=== PATIENT | female | born 1945 | race Two or more races ===

== ENCOUNTER 2018-09-08 05:50 | Inpatient (IN) | payer MEDICARE, OTHER ==
[~2018-09-08] VITALS: Ht 160 cm; Wt 74.4 kg
[2018-09-08] VITALS (19 sets, daily range): BP systolic 102–122; BP diastolic 50–89
[2018-09-08] MEDS ORDERED: LR 1000ml 1,000 ML IVLG SCH (07:01)
--- NOTE | 2018-09-08 07:07 | Anethesia Preoperative Eval ---
Anesthesia Pre-op PMH/ROS General Date of Evaluation: Sep 08, 2018 Time of Evaluation: 07:41 Anesthesiologist: Nuris ASA Score: ASA 3 Mallampati Score Class I : Soft palate, uvula, fauces, pillars visible Class II: Soft palate, uvula, fauces visible Class III: Soft palate, base of uvula visible Class IV: Only hard plate visible Mallampati Classification: Class II Surgeon: Baldev Diagnosis: Abd Pain Surgical Procedure: Vaginal Hysterectomy, Anesthesia History: none Family History: no anesthesia problems Allergies: Coded Allergies: PENICILLINS (Verified Allergy, Severe, 09/07/18) STOP BREATHING,CHOKING,HARD OF BREATHING Uncoded Allergies: ANALGESIC (Allergy, Severe, 09/07/18) STOP BREATHING,HARD TO BREATHE,REDNESS,ITCHING Medications: see eMAR Patient NPO?: Yes NPO Date: Sep 07, 2018 NPO Time: 1900 Past Medical History Pulmonary: Reports: other - Bronchitis Neurologic/Psychiatric: Reports: depression/anxiety Endocrine: Reports: DM HEENT: Reports: cataract (L), cataract (R) Anesthesia Pre-op Phys. Exam Physician Exam Last Vital Signs Date Time Temp Pulse Resp B/P (MAP) Pulse Ox O2 Delivery O2 Flow Rate FiO2 09/08/18 06:47 97.9 79 18 120/79 (93) 97 Constitutional: NAD Neurologic: CN 2-12 intact Cardiovascular: RRR Respiratory: CTA Gastrointestinal: S/NT/ND Airway Exam Mallampati Score: Class II MO: limited ROM: limited Teeth: missing, intact Anesthesia Pre-op A/P Risk Assessment & Plan Assessment: ASA 3 Plan: GA, SED, GlideScope Go Status Change Before Surgery: No Pre-Antibiotics Dru Gram Ancef IV Given Within 1 Hr of Incision: Yes Time Given: 08:01 Elio Lawler MD Sep 08, 2018 07:07
[2018-09-08] MEDS ORDERED: SYNTHROID100 MCG ORAL (07:09)
[2018-09-08] MEDS ORDERED: METFORMIN HCL500 M1 ORAL (07:09)
[2018-09-08] MEDS ORDERED: JANUMET XR 50-1 EACH ORAL (07:09)
[2018-09-08] MEDS ORDERED: Hydromorphone 0.5mg/0.5ml inj IVP PRN (07:15)
[2018-09-08] MEDS ORDERED: LORazepam Inj 2mg/ml 1ml IV PRN (07:15)
[2018-09-08] MEDS ORDERED: HYDROcodone/Acetamin 5/325 tab ORAL PRN ×2 (07:15→07:45)
[2018-09-08] MEDS ORDERED: HYDROcodone/Acetamin 7.5/325 tab ORAL PRN (07:15)
[2018-09-08] MEDS ORDERED: Ketorolac 30mg Inj IV PRN ×4 (07:15→08:15)
[2018-09-08] MEDS ORDERED: Midazolam 2mg/2ml Inj IVP PRN (07:15)
[2018-09-08] MEDS ORDERED: Labetalol 5mg/ml 20ml vial IV PRN (07:15)
[2018-09-08] MEDS ORDERED: fentaNYL 100 mcg/2 mL IV PRN (07:15)
[2018-09-08] MEDS ORDERED: Metoclopramide 10mg/2ml Inj IVP PRN ×2 (07:15→07:45)
[2018-09-08] MEDS ORDERED: Meperidine 50mg/ml Inj(FOR RIGORS ONLY) IVP PRN (07:15)
[2018-09-08] MEDS ORDERED: Atropine Sulfate 0.4mg/ml inj IVP PRN (07:15)
[2018-09-08] MEDS ORDERED: DiphenhydrAMINE 50mg/ml Inj IVP PRN (07:15)
[2018-09-08] MEDS ORDERED: NeoSporin Gu Irrig 1ml Amp IRRIG ONE (07:16)
[2018-09-08] MEDS ORDERED: Bupivacaine w/Epi 0.5% 30ml Vial INJ ONE (07:16)
[2018-09-08] MEDS ORDERED: Bacitracin 50000 Units Vial ONE (07:16)
[2018-09-08] MEDS ORDERED: Sodium Chloride 10ml vial INJ ONE (07:18)
[2018-09-08] MEDS ORDERED: Propofol 200mg/20ml IV ONE ×2 (07:18→09:36)
[2018-09-08] MEDS ORDERED: Lidocaine 1% MPF 10mg/ml 5ml ONE (07:18)
[2018-09-08] MEDS ORDERED: Lidocaine 1% Plain 30 ml INJ ONE ×2 (07:19→09:36)
[2018-09-08] MEDS ORDERED: Midazolam 2mg/2ml Inj ONE ×2 (07:21→07:52)
[2018-09-08] MEDS ORDERED: fentaNYL 100 mcg/2 mL IV ONE ×2 (07:21→10:33)
[2018-09-08] MEDS ORDERED: Sulfanilamide 15% Cream - 78gm VAGIN ONE (07:30)
[2018-09-08] MEDS ORDERED: ProvayBlue 5mg/ml 10ml amp INJ ONE (07:30)
--- NOTE | 2018-09-08 07:33 | Pre-Procedure Note/Attestation ---
Pre-Procedure Note/Attestation Complete Prior to Procedure Planned Procedure: not applicable Procedure Narrative: vaginal hysterectomy Indications for Procedure Pre-Operative Diagnosis: uterovaginal prolapse Attestation I attest that I discussed the nature of the procedure; its benefits; risks and complications; and alternatives (and the risks and benefits of such alternatives ), prior to the procedure, with the patient (or the patient's legal pharmaceutical specialty representative). I attest that, if there was a reasonable possibility of needing a blood transfusion, the patient (or the patient's legal pharmaceutical specialty representative) was given the [facility] standardized written summary, pursuant to the Seamus Marilou Blood Safety Act ([place] Health and Safety Code # 1645, as amended). I attest that I re-evaluated the patient just prior to the surgery and that there has been no change in the patient's H&P, except as documented below: Tamiko Wiseman MD Sep 08, 2018 07:33
[2018-09-08] MEDS ORDERED: Zolpidem 5mg tab ORAL PRN (07:45)
[2018-09-08] MEDS ORDERED: Acetaminophen (Non formulary) 100 ML IV ONE (07:45)
--- NOTE | 2018-09-08 07:53 | Pre-Procedure Note/Attestation ---
Pre-Procedure Note/Attestation Complete Prior to Procedure Planned Procedure: not applicable Procedure Narrative: Cystocele repair vaginal sling rectocele repair cystoscopy Indications for Procedure Pre-Operative Diagnosis: prolapce Attestation I attest that I discussed the nature of the procedure; its benefits; risks and complications; and alternatives (and the risks and benefits of such alternatives ), prior to the procedure, with the patient (or the patient's legal sales account representative). I attest that, if there was a reasonable possibility of needing a blood transfusion, the patient (or the patient's legal sales account representative) was given the [facility] standardized written summary, pursuant to the Seamus Marilou Blood Safety Act ([place] Health and Safety Code # 1645, as amended). I attest that I re-evaluated the patient just prior to the surgery and that there has been no change in the patient's H&P, except as documented below: Anton Arce MD Sep 08, 2018 07:52
[2018-09-08] MEDS ORDERED: LR 1000ml ONE (08:00)
[2018-09-08] MEDS ORDERED: Sterile Water Irrig 1000ml IRRIG ONE (08:00)
[2018-09-08] MEDS ORDERED: Sterile Water For Irrig 2000ml IRRIG ONE (08:00)
--- NOTE | 2018-09-08 08:42 | Immediate Post-Op Evaluation ---
Immediate Post-Op Evalulation Immediate Post-Op Evalulation Procedure: Vaginal Hysterectomy, Sling Rectocele, Cystocele Repair Date of Evaluation: Sep 08, 2018 Time of Evaluation: 11:53 IV Fluids: 1500 LR Blood Products: 0 Estimated Blood Loss: 75 Urinary Output: 500 Blood Pressure Systolic: 115 Blood Pressure Diastolic: 61 Pulse Rate: 77 Respiratory Rate: 16 O2 Sat by Pulse Oximetry: 100 Temperature (Fahrenheit): 97.2 Pain Score (1-10): 2 Nausea: No Vomiting: No Complications 0 Patient Status: awake, reacts, patent, extubated, none Hydration Status: adequate Dru Gram Ancef IV Given Within 1 Hr of Incision: Yes Time Given: 08:01 Elio Lawler MD Sep 08, 2018 08:42
[2018-09-08] MEDS ORDERED: NS Irrig 1000ml IRRIG ONE (09:20)
--- NOTE | 2018-09-08 09:27 | Brief Operative Note ---
Immediate Post Operative Note Operative Note Pre-op Diagnosis: uterovaginal prolapse Procedure: Vaginal Hysterectomy Post-op Diagnosis: same Surgeon: Ivone Compound Mixer: Herber Anesthesia: general Specimen: yes Complications: none Condition: stable Fluids: crystalloid Estimated Blood Loss: minimal Drains: none Packing: vaginal packing Implant(s) used?: No Tamiko Wiseman MD Sep 08, 2018 09:27
[2018-09-08] MEDS ORDERED: ProvayBlue 5mg/ml 10ml amp IVP ONE (10:24)
[2018-09-08] MEDS ORDERED: Glycopyrrolate 0.2mg/ml 1ml Vial ONE (11:25)
--- NOTE | 2018-09-08 11:32 | Brief Operative Note ---
Immediate Post Operative Note Operative Note Pre-op Diagnosis: prolapce Procedure: cystocele rectocele repair vaginal sling cystoscopy Post-op Diagnosis: same Surgeon: navdeep Arce Anesthesia: general Specimen: none Complications: none Condition: stable Fluids: 1500 Estimated Blood Loss: minimal Implant(s) used?: No Anton Arce MD Sep 08, 2018 11:32
[2018-09-08] MEDS: D5 1/2NS w/KCl 20mEq 1,000 ML IV SCH (15:53)
[2018-09-08] MEDS: ceFAZolin sod 1 GM in D5W 55 ML IV SCH ×2 (15:53→23:47)
--- NOTE | 2018-09-08 16:30 | Operative Note - Dictated ---
DATE OF OPERATION: 09/08/2018 PREOPERATIVE DIAGNOSIS: Uterovaginal prolapse. POSTOPERATIVE DIAGNOSIS: Uterovaginal prolapse. PROCEDURE: Vaginal hysterectomy. SURGEON: Tamiko Wiseman M.D. NURSING EDUCATOR: Natalie Craven M.D. ANESTHESIOLOGIST: Elio Lawler M.D. PROCEDURE IN DETAIL: After ensuring informed consent, the patient was taken to the operating room where general anesthesia was induced. The patient was sterilely prepped and draped with legs placed in Christofer stirrups in dorsal lithotomy position. A weighted speculum was placed in the vagina. Cervix was grasped with a double tooth tenaculum. The cervix was circumferentially anesthetized with Marcaine with epinephrine. Then circumferentially incision was made with the Bovie. The vaginal mucosa was pushed off of the underlying peritoneal surfaces. Rectovaginal peritoneum was identified, grasped, and entered sharply with Seo scissors. The posterior cul-de-sac of Juliocesar was entered. Long weighted speculum was placed there. The uterosacral ligament on the left side was grasped, cut, suture ligated. The uterosacral ligament on the right was grasped, cut, suture ligated. Attention was turned to the anterior aspect of the uterus where the vesicouterine peritoneum was identified, grasped, and entered sharply with Metzenbaum scissors. Shara retractor was placed there. The uterine arteries was grasped with Naa's on both sites, suture ligated x2. Utero-ovarian was grasped, cut, and suture ligated. Uterus was amputated. All pedicles appeared to be dry. The moist lap was placed in anticipation of Dr. Arce doing his part of the procedure. At the end of my procedure, all instrument and lap counts were correct x2. An excellent hemostasis was assured. Estimated blood loss was minimal. Tamiko Wiseman M.D. DR: Rachid JOB#: [id number] CC:
[2018-09-08] MEDS: NovoLOG Insulin Flexpen SUBQ SCH ×2 (16:59→20:16)
[2018-09-08] MEDS: Docusate 100mg cap ORAL SCH (17:58)
[2018-09-09] VITALS: BP 110/53
[2018-09-09] MEDS: D5 1/2NS w/KCl 20mEq 1,000 ML IV SCH (02:04)
[2018-09-09 04:00] VITALS: BP 101/56
[2018-09-09] MEDS: NovoLOG Insulin Flexpen SUBQ SCH ×4 (05:36→20:29)
[2018-09-09 07:22] LABS: BASOPHILS % (AUTO) 0.7 % (0.0-2.0); EOSINOPHILS % (AUTO) 0.2 % (0.0-3.0); HEMATOCRIT 31.3 % (37.0-47.0); HEMOGLOBIN 10.1 G/DL (12.0-16.0); LYMPHOCYTES % (AUTO) 19.5 % (20.0-45.0); MEAN CORPUSCULAR VOLUME 83 FL (80-99); MONOCYTES % (AUTO) 9.5 % (1.0-10.0); NEUTROPHILS % (AUTO) 70.2 % (45.0-75.0); PLATELET COUNT 137 K/UL (150-450); RED BLOOD COUNT 3.77 M/UL (4.20-5.40); RED CELL DISTRIBUTION WIDTH 13.4 % (11.6-14.8); WHITE BLOOD COUNT 9.5 K/UL (4.8-10.8)
[2018-09-09 07:36] LABS: ANION GAP 6 mmol/L (5-15); BLOOD UREA NITROGEN 9 mg/dL (7-18); CALCIUM 8.3 MG/DL (8.5-10.1); CARBON DIOXIDE 29 MMOL/L (21-32); CHLORIDE 101 MMOL/L (98-107); CREATININE 0.6 MG/DL (0.55-1.30); POTASSIUM 4.2 MMOL/L (3.5-5.1); SODIUM 136 MMOL/L (136-145)
[2018-09-09 08:00] VITALS: BP 102/56
[2018-09-09] MEDS: Docusate 100mg cap ORAL SCH ×2 (08:56→17:32)
[2018-09-09] MEDS ORDERED: HYDROcodone/Acetamin 5/325 tab ORAL PRN (10:15)
--- NOTE | 2018-09-09 10:16 | General Surgery Progress Note ---
General Surgery-Progress Note Subjective Procedure Performed Vaginal Hysterectomy Symptoms: improved, pain same, passing flatus Objective Last 24 Hour Vital Signs Date Time Temp Pulse Resp B/P (MAP) Pulse Ox O2 Delivery O2 Flow Rate FiO2 09/09/18 09:00 Room Air 09/09/18 08:00 98.4 66 17 102/56 (71) 96 09/09/18 04:00 98.3 78 18 101/56 (71) 99 09/09/18 00:00 98.3 77 18 110/53 (72) 93 09/08/18 20:31 Room Air 09/08/18 20:25 98.0 64 18 112/56 (74) 99 09/08/18 18:56 98.1 09/08/18 16:50 98.1 66 17 105/56 (72) 96 09/08/18 15:50 97.9 68 19 104/56 (72) 95 09/08/18 14:58 Room Air 09/08/18 14:50 98.1 87 17 102/54 (70) 95 09/08/18 14:20 98.0 70 16 106/53 (70) 96 09/08/18 13:50 97.6 92 16 116/89 (98) 97 09/08/18 13:28 97.2 93 25 112/66 100 Nasal Cannula 3 09/08/18 13:15 95 26 122/66 100 Nasal Cannula 3 09/08/18 13:00 72 25 120/65 100 Nasal Cannula 3 09/08/18 12:54 97.4 09/08/18 12:54 97.4 09/08/18 12:50 59 24 120/50 100 Nasal Cannula 3 09/08/18 12:45 62 22 119/54 100 Nasal Cannula 3 09/08/18 12:30 61 21 106/59 100 Nasal Cannula 3 09/08/18 12:20 60 20 110/62 100 Nasal Cannula 3 09/08/18 12:10 62 22 119/54 100 Nasal Cannula 3 09/08/18 12:00 67 25 116/75 100 Nasal Cannula 3 09/08/18 11:55 70 24 113/60 100 Simple Mask 6 09/08/18 11:50 79 22 103/57 100 Simple Mask 6 09/08/18 11:42 97.8 95 19 115/61 100 Simple Mask 6 09/08/18 11:41 77 16 100 I&O Intake and Output 09/08/18 09/09/18 19:00 07:00 Intake Total 1720 ml 1320 ml Output Total 425 ml 500 ml Balance 1295 ml 820 ml Intake Oral 120 ml 120 ml IV Total 1600 ml 1200 ml Output Urine Total 375 ml 500 ml Estimated Blood Loss 50 ml Dressing: dry Abdomen: soft, non-tender, non-distended Laboratory Tests Test 09/09/18 05:45 White Blood Count 9.5 K/UL (4.8-10.8) Red Blood Count 3.77 M/UL (4.20-5.40) L Hemoglobin 10.1 G/DL (12.0-16.0) L Hematocrit 31.3 % (37.0-47.0) L Mean Corpuscular Volume 83 FL (80-99) Mean Corpuscular Hemoglobin 26.8 PG (27.0-31.0) L Mean Corpuscular Hemoglobin Concent 32.4 G/DL (32.0-36.0) Red Cell Distribution Width 13.4 % (11.6-14.8) Platelet Count 137 K/UL (150-450) L Mean Platelet Volume 9.3 FL (6.5-10.1) Neutrophils (%) (Auto) 70.2 % (45.0-75.0) Lymphocytes (%) (Auto) 19.5 % (20.0-45.0) L Monocytes (%) (Auto) 9.5 % (1.0-10.0) Eosinophils (%) (Auto) 0.2 % (0.0-3.0) Basophils (%) (Auto) 0.7 % (0.0-2.0) Sodium Level 136 MMOL/L (136-145) Potassium Level 4.2 MMOL/L (3.5-5.1) Chloride Level 101 MMOL/L (98-107) Carbon Dioxide Level 29 MMOL/L (21-32) Anion Gap 6 mmol/L (5-15) Blood Urea Nitrogen 9 mg/dL (7-18) Creatinine 0.6 MG/DL (0.55-1.30) Estimat Glomerular Filtration Rate mL/min (>60) Glucose Level 175 MG/DL (74-106) H Calcium Level 8.3 MG/DL (8.5-10.1) L Assessment Post-op Diagnosis same Tamiko Wiseman MD Sep 09, 2018 10:16
[2018-09-09] MEDS: Ketorolac 30mg Inj IV SCH ×2 (10:20→17:33)
[2018-09-09 12:00] VITALS: BP 91/49
[2018-09-09] MEDS ORDERED: Ketorolac 30mg Inj IV SCH (12:00)
[2018-09-09] MEDS: metFORMIN 500mg tab ORAL SCH ×2 (12:16→17:32)
--- NOTE | 2018-09-09 13:13 | 48 Hour Post Anesthesia Eval ---
Post Anesthesia Evaluation Procedure: Vaginal Hysterectomy, Sling Rectocele, Cystocele Repair Date of Evaluation: Sep 09, 2018 Time of Evaluation: 13:12 Blood Pressure Systolic: 106 0: 75 Pulse Rate: 82 Respiratory Rate: 22 Temperature (Fahrenheit): 97.6 O2 Sat by Pulse Oximetry: 97 Airway: patent Nausea: No Vomiting: No Pain Intensity: 3 Hydration Status: adequate Cardiopulmonary Status: stable Mental Status/LOC: patient returned to baseline Follow-up Care/Observations: n/a Post-Anesthesia Complications: none Follow-up care needed: N/A Bhaskar Hilton MD Sep 09, 2018 13:13
[2018-09-09 16:00] VITALS: BP 107/50
[2018-09-09 20:00] VITALS: BP 109/61
[2018-09-10] VITALS: BP 115/59
[2018-09-10] MEDS ORDERED: Gadavist 7.5mMol/7.5ml vial IV PRN (02:30)
[2018-09-10 04:00] VITALS: BP 112/63
--- NOTE | 2018-09-10 04:00 | Operative Note - Dictated ---
DATE OF OPERATION: 09/08/2018 PREOPERATIVE DIAGNOSIS: Vaginal prolapse. POSTOPERATIVE DIAGNOSIS: Vaginal prolapse. OPERATIONS: Transvaginal cystocele repair, rectocele repair, vaginal wall sling, and colposuspension. OPERATED BY: Anton Arce M.D. ANESTHESIA: General. FINDINGS: Complete vaginal prolapse. INDICATIONS FOR SURGERY: The patient was referred to me by Dr. Wiseman due to the vaginal prolapse. She was evaluated with urodynamics and a cystoscopy, and I had a long discussion with her about colposuspension. She understands the nature of the procedure and signed the consent. DESCRIPTION OF PROCEDURE: She was brought to the operating room by Dr. Wiseman, for transvaginal hysterectomy. Goalpost incision in the mid vaginal wall was done and bladder was kept from the vaginal wall including the ureter. space was entered and uterine device from [email or web address], sutures were placed in the sacral spinal muscle and brought back into the vaginal vault. Using transvaginal cystocele repair with individual 0 Vicryl sutures central defect was repaired using [id number] sutures. After that, sutures were placed through the posterior vaginal mucosa, and the colposuspension was performed using 2-0 Prolene sutures. The vagina was well supported. Rectocele repair was performed. Cystoscopy showed no evidence of obstruction of the ureters and no evidence of bladder perforation. The vaginal mucosa was trimmed and closed with 2-0 Vicryl suture. The vagina was packed, and Barber catheter was placed. Sponge count and instrument count were correct. The patient tolerated the procedure well. No evidence of complications. Anton Arce M.D. DR: SHARI JOB#: [id number] CC:
[2018-09-10] MEDS: Ketorolac 30mg Inj IV SCH ×4 (05:05→17:32)
[2018-09-10] MEDS: NovoLOG Insulin Flexpen SUBQ SCH ×3 (06:09→16:30)
[2018-09-10 08:00] VITALS: BP 118/65
[2018-09-10] MEDS ORDERED: PPD Tuberculin Skin Test 5TU IDERMAL ONE (09:00)
[2018-09-10] MEDS: Docusate 100mg cap ORAL SCH ×2 (10:24→17:32)
[2018-09-10] MEDS: metFORMIN 500mg tab ORAL SCH ×2 (10:24→17:31)
[2018-09-10 12:00] VITALS: BP 127/70
[2018-09-10 16:00] VITALS: BP 139/73
--- NOTE | 2018-09-10 17:45 | Operative Note - Dictated ---
DATE OF OPERATION: 09/10/2018 NOTE: INCOMPLETE DICTATION: PREOPERATIVE DIAGNOSES: Uterovaginal prolapse, occasional stress incontinence. POSTOPERATIVE DIAGNOSES: Uterovaginal prolapse, occasional stress incontinence. PROCEDURE: Vaginal hysterectomy. SURGEON: Tamiko Wiseman M.D. CORK COMPOUNDER: Natalie Craven M.D. ANESTHESIOLOGIST: Elio Lawler M.D. ANESTHESIA: General endotracheal. FLUIDS: Crystalloid. ESTIMATED BLOOD LOSS: Less than 50 mL. PROCEDURE IN DETAIL: After ensuring informed consent, the patient was taken to the operating room where general anesthesia was induced. The patient was sterilely prepped and draped. Weighted speculum was placed in the vagina. Cervix was circumferentially injected with local meropenem with epinephrine. Next, circumferential incision was made around the cervix and. Tamiko Wiseman M.D. DR: MURRAY JOB#: [id number] CC:
[2018-09-10] MEDS ORDERED: NITROFURANTOIN100 M2 ORAL (18:04)
[2018-09-10] MEDS ORDERED: IBUPROFEN600 MG ORAL (18:06)
[2018-09-10] MEDS ORDERED: NORCO 5-325 TA1 EACH ORAL (18:07)
--- NOTE | 2018-09-11 00:15 | Discharge Summary ---
DATE OF ADMISSION: 09/08/2018 DATE OF DISCHARGE: 09/10/2018 PREOPERATIVE DIAGNOSIS: Uterovaginal prolapse. POSTOPERATIVE DIAGNOSIS: Uterovaginal prolapse. PROCEDURES: Vaginal hysterectomy, cystocele and rectocele repair, vaginal sling, and cystoscopy. ESTIMATED BLOOD LOSS: 50 mL. ANESTHESIA: General. HOSPITAL COURSE: The patient was in the hospital until postoperative day #2, at which point she was discharged home, ambulating, tolerating regular diet, and passing flatus. The patient is to followup with Dr. Arce in one week and Dr. Wiseman in two weeks. She was discharged home on ibuprofen and [place]. She is to follow up for vaginal bleeding, nausea, vomiting, fever, chills. Tamiko Wiseman M.D. DR: ANANDA JOB#: [id number] CC:
== END 2018-09-10 19:00 | disposition home or self-care (01) | DRG 742 ==
LOC: SDSOVERFLO 05:50 → 3E 14:00
PROC: 0USG7ZZ Reposition Vagina, Via Natural or Artificial Opening (ICD-10-PCS; principal; 2018-09-08 07:30)
PROC: 0JQC3ZZ Repair Pelvic Region Subcutaneous Tissue and Fascia, Percutaneous Approach (ICD-10-PCS; principal; 2018-09-08 07:30)
PROC: 0UT98ZZ Resection of Uterus, Via Natural or Artificial Opening Endoscopic (ICD-10-PCS; principal; 2018-09-08 07:30)
DX: N81.4 Uterovaginal prolapse, unspecified (principal); K86.1 Other chronic pancreatitis; E11.9 Type 2 diabetes mellitus without complications; M19.90 Unspecified osteoarthritis, unspecified site; G89.4 Chronic pain syndrome; N39.3 Stress incontinence (female) (male); N81.6 Rectocele
CPT/HCPCS: 36415; 80048; 82962; 85025; 86580; 86850; 86900; 86901; 87081; 94003; 94150; J1815; J2250; J2405; J2765